=== PATIENT | female | born 1955 | race Caucasian/White ===

== ENCOUNTER → 2022-11-10 | Outpatient (CLI) | payer OTHER | END | disposition home or self-care (01) | LOC: TOM 08:25 | DX: C50.811 Malignant neoplasm of overlapping sites of right female breast (principal); C77.3 Secondary and unspecified malignant neoplasm of axilla and upper limb lymph nodes; C79.51 Secondary malignant neoplasm of bone | CPT/HCPCS: 71260; 74177; Q9965 ==

== ENCOUNTER 2022-12-09 09:05 | Outpatient (CLI) | payer OTHER | END 2022-12-09 09:07 | disposition home or self-care (01) | LOC: NUCLEAR 09:05 | PROVIDERS: ATTEND Internal Medicine | DX: C50.811 Malignant neoplasm of overlapping sites of right female breast (principal); C77.3 Secondary and unspecified malignant neoplasm of axilla and upper limb lymph nodes; C79.9 Secondary malignant neoplasm of unspecified site | CPT/HCPCS: 78306; 78803; A9503 ==

== ENCOUNTER 2023-03-28 08:27 | Outpatient (CLI) | payer OTHER | END 2023-03-28 08:32 | disposition home or self-care (01) | LOC: TOM 08:27 | PROVIDERS: ATTEND Internal Medicine | DX: C50.811 Malignant neoplasm of overlapping sites of right female breast (principal); C79.51 Secondary malignant neoplasm of bone | CPT/HCPCS: 71260; 74177; Q9965 ==

== ENCOUNTER 2023-03-31 09:10 | Outpatient (CLI) | payer OTHER | END 2023-03-31 09:23 | disposition home or self-care (01) | LOC: NUCLEAR 09:10 | PROVIDERS: ATTEND Internal Medicine | DX: C50.811 Malignant neoplasm of overlapping sites of right female breast (principal); C79.51 Secondary malignant neoplasm of bone; C77.3 Secondary and unspecified malignant neoplasm of axilla and upper limb lymph nodes | CPT/HCPCS: 78306; A9503 ==

== ENCOUNTER 2023-06-15 08:09 | Outpatient (CLI) | payer OTHER | END 2023-06-15 08:14 | disposition home or self-care (01) | LOC: NUCLEAR 08:09 | PROVIDERS: ATTEND Internal Medicine | DX: C50.811 Malignant neoplasm of overlapping sites of right female breast (principal); C77.3 Secondary and unspecified malignant neoplasm of axilla and upper limb lymph nodes; C79.51 Secondary malignant neoplasm of bone; C77.1 Secondary and unspecified malignant neoplasm of intrathoracic lymph nodes | CPT/HCPCS: 78815; A9552 ==

== ENCOUNTER 2023-10-11 08:14 | Outpatient (CLI) | payer OTHER | END 2023-10-11 08:21 | disposition home or self-care (01) | LOC: TOM 08:14 | DX: C79.51 Secondary malignant neoplasm of bone (principal) | CPT/HCPCS: 70492; 71270; Q9965 ==